=== PATIENT | male | born 1975 | race Caucasian/White ===

== ENCOUNTER 2021-03-01 06:58 | Outpatient (REF) | payer OTHER, SELFPAY ==
[2021-03-01 09:10] LABS: Estimated Average Glucose 298 mg/dL
[2021-03-01 09:12] LABS: Microalbum/Creatinine Ratio Ur 16.6 ug/mg cr
[2021-03-01 09:23] LABS: Vitamin B12 600 pg/mL (200-900)
[2021-03-01 09:26] LABS: Alanine Aminotransferase 35 U/L (0-40); Albumin Level 4.6 g/dL (3.5-5.0); Alkaline Phosphatase 164 U/L (39-117); Anion Gap 16 (12-20); Aspartate Amino Transferase 18 U/L (5-37); Bilirubin Total 0.9 mg/dL (0.0-1.0); Blood Urea Nitrogen 14 mg/dL (9-16); Calcium 9.7 mg/dL (8.4-10.2); Carbon Dioxide 23 mmol/L (22-29); Chloride 103 mmol/L (96-108); Cholesterol 161 mg/dL; Estimated Glomerular Filt Rate > 60; Glucose Random 357 mg/dL (60-115); HDL Cholesterol 35 mg/dL; LDL Cholesterol Calculated 48 mg/dl; Potassium 3.9 mmol/L (3.3-5.1); Sodium 138 mmol/L (135-145); Total Protein 7.2 g/dL (6.5-8.0); Triglycerides 393 mg/dL
== END 2021-03-01 06:59 | disposition home or self-care (01) ==
LOC: HO.LAB 06:58
PROVIDERS: Visit Provider Internal Medicine
DX: E11.65 Type 2 diabetes mellitus with hyperglycemia (principal); E11.69 Type 2 diabetes mellitus with other specified complication; M54.42 Lumbago with sciatica, left side
CPT/HCPCS: 36415; 80053; 80061; 82043; 82306; 82607; 83036

== ENCOUNTER 2021-06-01 15:20 | Outpatient (REF) | payer OTHER, SELFPAY ==
[2021-06-01 15:52] LABS: Estimated Average Glucose 312 mg/dL; Hemoglobin A1c % 12.5 %
== END 2021-06-01 15:21 | disposition home or self-care (01) ==
LOC: HO.LAB 15:20
PROVIDERS: PCP Internal Medicine; Visit Provider Internal Medicine
DX: E11.65 Type 2 diabetes mellitus with hyperglycemia (principal); I10 Essential (primary) hypertension
CPT/HCPCS: 36415; 83036

== ENCOUNTER → 2021-11-16 07:47 | Outpatient (BNVA) | payer OTHER, SELFPAY | PROVIDERS: PCP Internal Medicine; Visit Provider Nurse Practitioner Gerontology | DX: E11.65 Type 2 diabetes mellitus with hyperglycemia (principal); E55.9 Vitamin D deficiency, unspecified; E78.5 Hyperlipidemia, unspecified; I10 Essential (primary) hypertension; E66.09 Other obesity due to excess calories; Z68.30 Body mass index [BMI] 30.0-30.9, adult; Z79.4 Long term (current) use of insulin | CPT/HCPCS: 82947; 83036; 99212 ==

== ENCOUNTER 2022-01-30 14:24 | Outpatient (REF) | payer OTHER, SELFPAY ==
[2022-01-30 15:49] LABS: Anion Gap 13 (12-20); Blood Urea Nitrogen 13 mg/dL (9-16); Calcium 9.7 mg/dL (8.4-10.2); Carbon Dioxide 26 mmol/L (22-29); Chloride 107 mmol/L (96-108); Estimated Glomerular Filt Rate > 60; Glucose Random 128 mg/dL (60-115); Potassium 3.7 mmol/L (3.3-5.1); Sodium 142 mmol/L (135-145)
[2022-01-30 15:52] LABS: Creatinine Urine 80.36 mg/dL; Microalbum/Creatinine Ratio Ur 6.2 ug/mg cr
[2022-01-30 16:11] LABS: Vitamin D 25-OH Total 10.6 ng/mL (>30)
== END 2022-01-30 14:25 | disposition home or self-care (01) ==
LOC: HO.LAB 14:24
PROVIDERS: PCP Internal Medicine; Visit Provider Internal Medicine
DX: E11.65 Type 2 diabetes mellitus with hyperglycemia (principal); E55.9 Vitamin D deficiency, unspecified
CPT/HCPCS: 36415; 80048; 82043; 82306

== ENCOUNTER → 2022-02-22 09:28 | Outpatient (BNVA) | payer OTHER, SELFPAY | PROVIDERS: PCP Internal Medicine; Visit Provider Nurse Practitioner Gerontology | DX: E11.65 Type 2 diabetes mellitus with hyperglycemia (principal); E55.9 Vitamin D deficiency, unspecified; E78.5 Hyperlipidemia, unspecified; E66.09 Other obesity due to excess calories; I10 Essential (primary) hypertension; Z68.31 Body mass index [BMI] 31.0-31.9, adult; Z79.4 Long term (current) use of insulin; Z79.899 Other long term (current) drug therapy | CPT/HCPCS: 82947; 83036; 99212 ==

== ENCOUNTER → 2022-09-13 10:52 | Outpatient (BNVA) | payer OTHER, SELFPAY | PROVIDERS: PCP Internal Medicine; Visit Provider Nurse Practitioner Family | DX: Z12.11 Encounter for screening for malignant neoplasm of colon (principal) | CPT/HCPCS: 99202 ==

== ENCOUNTER → 2022-11-01 08:24 | Outpatient (BNVA) | payer OTHER, SELFPAY | PROVIDERS: PCP Internal Medicine; Visit Provider Internal Medicine Endocrinology, Diabetes & Metabolism | DX: E11.65 Type 2 diabetes mellitus with hyperglycemia (principal) | CPT/HCPCS: 82947; 83036; 99212 ==

== ENCOUNTER 2023-12-11 07:59 | Outpatient (REF) | payer OTHER, SELFPAY ==
[2023-12-11 09:48] LABS: Anion Gap 13 (12-20); Blood Urea Nitrogen 12 mg/dL (9-16); Calcium 9.5 mg/dL (8.4-10.2); Carbon Dioxide 25 mmol/L (22-29); Chloride 106 mmol/L (96-108); Cholesterol 212 mg/dL (<200); Estimated Glomerular Filt Rate > 60; Glucose Random 208 mg/dL (60-115); HDL Cholesterol 34 mg/dL (>40); LDL Cholesterol Calculated 105 mg/dL (<100); Potassium 3.6 mmol/L (3.3-5.1); Sodium 140 mmol/L (135-145); Triglycerides 368 mg/dL (<150)
[2023-12-11 10:02] LABS: TSH reflex Free T4 1.87 uIU/mL (0.32-4.0); Vitamin D 25-OH Total 10.4 ng/mL (>30)
== END 2023-12-11 08:00 | disposition home or self-care (01) ==
LOC: HO.LAB 07:59
PROVIDERS: PCP Internal Medicine; Visit Provider Internal Medicine
DX: E11.42 Type 2 diabetes mellitus with diabetic polyneuropathy (principal); E11.65 Type 2 diabetes mellitus with hyperglycemia; Z79.4 Long term (current) use of insulin
CPT/HCPCS: 36415; 80048; 80061; 82306; 84443

== ENCOUNTER 2024-09-22 09:34 | Outpatient (REF) | payer OTHER, SELFPAY ==
[2024-09-22 11:45] LABS: TSH reflex Free T4 1.87 uIU/mL (0.32-4.0)
[2024-09-30 16:04] LABS: Testosterone, Free 57.6 pg/mL (35.0-155.0); Testosterone, Total 345 ng/dL (250-1100)
== END 2024-09-22 09:35 | disposition home or self-care (01) ==
LOC: HO.LAB 09:34
PROVIDERS: PCP Internal Medicine; Visit Provider Internal Medicine
DX: Z31.69 Encounter for other general counseling and advice on procreation (principal)
CPT/HCPCS: 36415; 84402; 84403; 84443

== ENCOUNTER 2025-04-04 15:12 | Outpatient (REF) | payer BC, SELFPAY ==
[2025-04-04 16:03] LABS: Estimated Average Glucose 258 mg/dL; Hemoglobin A1c % 10.6 % (<6.0)
[2025-04-04 16:25] LABS: Alanine Aminotransferase 39 U/L (0-40); Albumin Level 4.7 g/dL (3.5-5.0); Alkaline Phosphatase 111 U/L (39-117); Anion Gap 13 (12-20); Aspartate Amino Transferase 25 U/L (5-37); Bilirubin Total 0.8 mg/dL (0.0-1.0); Blood Urea Nitrogen 13 mg/dL (9-16); Calcium 9.7 mg/dL (8.4-10.2); Carbon Dioxide 26 mmol/L (22-29); Chloride 107 mmol/L (96-108); Cholesterol 193 mg/dL (<200); Estimated Glomerular Filt Rate > 60; Glucose Random 156 mg/dL (60-115); HDL Cholesterol 35 mg/dL (>40); LDL Cholesterol Calculated 119 mg/dL (<100); Potassium 3.8 mmol/L (3.3-5.1); Sodium 142 mmol/L (135-145); Total Protein 7.4 g/dL (6.5-8.0); Triglycerides 195 mg/dL (<150)
[2025-04-04 16:34] LABS: Alanine Aminotransferase 42 U/L (0-40); Albumin Level 4.6 g/dL (3.5-5.0); Alkaline Phosphatase 111 U/L (39-117); Anion Gap 13 (12-20); Aspartate Amino Transferase 26 U/L (5-37); Bilirubin Total 0.7 mg/dL (0.0-1.0); Blood Urea Nitrogen 13 mg/dL (9-16); Calcium 9.5 mg/dL (8.4-10.2); Carbon Dioxide 27 mmol/L (22-29); Chloride 106 mmol/L (96-108); Cholesterol 186 mg/dL (<200); Estimated Glomerular Filt Rate > 60; Glucose Random 154 mg/dL (60-115); HDL Cholesterol 36 mg/dL (>40); LDL Cholesterol Calculated 112 mg/dL (<100); Potassium 3.7 mmol/L (3.3-5.1); Sodium 142 mmol/L (135-145); Total Protein 7.4 g/dL (6.5-8.0); Triglycerides 192 mg/dL (<150)
[2025-04-04 16:34] LABS: Creatinine Urine 144.12 mg/dL; Microalbum/Creatinine Ratio Ur 39.5 ug/mg cr (<30)
[2025-04-04 16:49] LABS: TSH reflex Free T4 1.78 uIU/mL (0.32-4.0); Vitamin D 25-OH Total 26.9 ng/mL (>30)
--- OUTSIDE RECORDS SUMMARY | 2025-04-04 17:01 | XMS_ITS | Clinical Summary ---
Author Organization [employer] Address [address] [place] [address] 7 [place] [address] Care Team Providers Care Laundry Assistant Name Role Phone Constance Luong MD Primary Care Provider + Allergies Active Allergy Reactions Criticality Noted Date Comments Semaglutide(0.25 Or 0.5mg-Dos) Other 07/12/2023 Severe nausea and gastroparesis Pollen Extract Unknown 10/23/2022 Medications glucose blood (ReliOn Prime Test) test strip 022 Active Lancet Devices (TRUEdraw Lancing Device) miscIndications: Type 2 diabetes mellitus with hyperglycemia ([facility]) USE DIRECTED 1 each 3 023 Active insulin aspart FlexPen (NovoLOG) 100 UNIT/ML penIndications:T ype 2 diabetes mellitus with hyperglycemia, with long-term current use of insulin ([facility]) Inject 4-14 Units under the skin before breakfast, before lunch, and before evening meal. According to sliding scale: 150-200: 4U/ 201-250=6u/ 251-300= 8u/ 301-350= 10U / 351-400= 14u and call PCP 12.6 mL 11 023 Active atorvastatin (Lipitor) 80 MG tabletIndication s:Hypertriglycer idemia Take 1 tablet (80 mg) by mouth at bedtime. 90 tablet 3 024 Active lisinopril 10 MG tabletIndication s:Primary hypertension Take 1 tablet (10 mg) by mouth in the morning. 90 tablet 3 024 Active insulin glargine (Lantus SoloStar) 100 UNIT/ML penIndications:T ype 2 diabetes mellitus without complication, with long-term current use of insulin ([facility]) Inject 60 Units under the skin at bedtime. 18 mL 11 Active insulin pen needle (Pentips) 32G x 6 mm misc Use TWICE A DAY 100 each 11 024 2024 Active sildenafil (Viagra) 100 MG tabletIndication s:Vasculogenic erectile dysfunction, unspecified vasculogenic erectile dysfunction type Take 1 tablet by mouth daily if needed approximately 1 hour before sexual activity. 10 tablet Active ergocalciferol (Vitamin D2) 1.25 MG (10941 UT) capsule TAKE 1 CAPSULE BY MOUTH ONCE A WEEK 12 capsule 3 Active gabapentin (Neurontin) 100 MG capsuleIndicatio ns:Polyneuropath y due to type 2 diabetes mellitus ([facility]) Take 1 capsule (100 mg) by mouth every 12 (twelve) hours. 60 capsule Active Additional Information Patient not taking.Reported on 02/04/2025 amoxicillin (Amoxil) 500 MG tablet TAKE 2 TABLETS BY MOUTH ONCE THEN 1 TABLET EVERY 8 HOURS UNTIL MEDICATION FINISHED Active Jardiance 25 MG TAKE 1 TABLET BY MOUTH EVERY MORNING 30 tablet Active empagliflozin (Jardiance) 25 MG Take 1 tablet (25 mg) by mouth in the morning. 30 tablet 2024 Discontinued Active Problems Problem Noted Date Diagnosed Date Lower urinary tract symptoms (LUTS) 12/08/2024 Assessment & Plan (12/08/2024 12:22 PM EST): Most likely BPH. Advised to reschedule appt with Urology which will also help with ED. Infertility counseling 09/21/2024 Assessment & Plan (09/21/2024 10:36 AM EST): Advised pt about controlled DM, treat ED. Refer to Urology for sperm count. Lichen planus 03/19/2024 Assessment & Plan (03/19/2024 9:37 AM EDT): On both heels, advised to use OTC hydrocortisone cream along w/ feet moisturizer Will fu at next visit and prescribe a stronger steroid if lesions have not changed Declined to be seen by dermatology Type 2 diabetes mellitus wit h hyperglycemia, with long-term current use of insulin 03/19/2024 Assessment & Plan (12/08/2024 12:17 PM EST): Uncontrolled. A1c improved but is at not at goal yet. Patient alternates with different types of insulin depending on what is available to him due to insurance coverage and affordability since he cannot afford Tresiba. Continue Jardiance and FU with endocrinology at [facility] on 12/22/2024. Counseled re more frequent low calorie/carb meals. Encouraged physical activity as tolerated. Foot exam is normal, no DM neuropathy. Advised to schedule ophthalmology appointment. Declined Influenza and Covid IZ a this time. FU in 3 months. Assessment & Plan (04/30/2024 10:39 AM EDT): More compliant with rx. Continue Lantus 60U + Humalog tid ac meals + Jardiance Counseled re more frequent low calorie/carb meals. Check fgstk 3x daily Encouraged physical activity as tolerated. Advised to fu with Optometry, Dr Chun Needs foot exam at next appt FU in 3 months. Assessment & Plan (03/19/2024 9:36 AM EDT): Uncontrolled. A1c is worse than before No medication changes as pt is not compliant w/ current doses. I had a lengthy discussion w/ pt about setting up alarms, medboxes (he has declined) Counseled re more frequent low calorie/carb meals. Check fgstk daily Encouraged physical activity as tolerated. Pt given information of [facility] to schedule an appointment for ophthalmology Fu Pt will call to reschedule appointment w/ podiatry to fu on ingrown toe nail FU in 6 wks TV Dyspepsia 01/30/2024 Assessment & Plan (01/30/2024 3:51 PM EDT): Likely related to DM gastropathy, fu with GI. Hypertriglyceridemia 12/12/2023 Assessment & Plan (12/12/2023 11:01 AM EST): Increase atorvastatin to 80 mg and attempt a tighter control of DM Will hold off on fibrates Diabetic retinopathy of righ t eye associated with type 2 diabetes mellitus 12/12/2023 Primary hypertension 09/12/2023 Assessment & Plan (12/08/2024 12:20 PM EST): Borderline controlled. Unclear if patient is compliant with medication as refill history shows otherwise. Continue lisinopril 10 mg same dose Counseled re low salt diet/increase moderate physical activity. Check home BP BIW and prn CP/MASTERSON/SALINAS Non smoking patient. Assessment & Plan (03/19/2024 9:34 AM EDT): Controlled. Unclear about compliance w/meds Continue lisinopril 10mg Counseled re low salt diet/increase moderate physical activity. Check home BP BIW and prn CP/MASTERSON/SALINAS Non smoking patient. Assessment & Plan (01/30/2024 3:47 PM EDT): Better controlled, BP is not at goal yet I told him to work on life style modifications, to have regular low slat det, increase regular exercise and take meds at a constant time. Check home BP BIW and prn CP/MASTERSON/SALINAS Non smoking patient. Fu in 4w Assessment & Plan (12/12/2023 10:51 AM EST): Uncontrolled. Increase lisinopril to 10mg and fu w me in 4 wks or firefighter type one Counseled re low salt diet/increase moderate physical activity. Check home BP BIW and prn CP/MASTERSON/SALINAS Assessment & Plan (09/12/2023 2:08 PM EST): Repeated is 130/82 Continue lisinopril 5mg, check BP at home FU with me in 3 months Encounter for colorectal cancer screening 2022 Assessment & Plan (09/12/2023 2:09 PM EST): New referral to was given to Pt as apparently the previous GI cancelled appointments several times Pt to make an appointment w/ Adjustment disorder with depressed mood 10/23/20 Assessment & Plan (04/30/2024 10:40 AM EDT): He was on better spirits today. Denies SI/HI We'll continue to monitor. He's aware of MH resources at health center and has crisis number. Assessment & Plan (03/19/2024 9:38 AM EDT): Pt is probably has major depression but he's declined repeativly to be referred to psychotherapy or evaluation He feels safe at home at this time and is able to reach out for safety, crisis number provided We discussed about coming into [facility] or messaging us on MyChart or using crisis #, continue POC Fu in 6 wk Gastroenteritis 10/23/2022 Polyneuropathy due to type 2 diabetes mellitus 1 12/24/2021 Assessment & Plan (03/07/2023 12:06 PM EDT): Seems to be slightly improving. 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 A1c is at goal. Counseled re more frequent low calorie/carb meals. Check fgstk 2-3x daily, I will try to get CGM approved by insurance so we can check fgstk. Refer to CDTM program. Encouraged physical activity as tolerated. FU in 4-6w. II explained that nausea and GI sxs may be related to gastropathy, he has a referral to GI in place. Referral for routine ophthalmology eval sent as well, patient never rs appt with [facility]. Assessment & Plan (12/12/2023 3:19 PM EST): Uncontrolled, pt noncompliant w meals and most likely w/ Tresiva Increase Tresiva up to 65 units and fu w firefighter type one or w me in 4-5w He needs to reschedule appointment w/ We discussed about setting up for insulin pump or CGM device but due to copayments pt is unable to afford this with firefighter type one or here at [facility] pharmacy. Counseled re more frequent low calorie/carb meals. Check fgstk 4x daily, cover with humalog scale. Encouraged physical activity as tolerated. Pt had retinopathy, told to schedule an appointment w/ retina specialist Assessment & Plan (09/12/2023 2:08 PM EST): Most likely still uncontrolled. Reminding pt to increase Lantus up to 60 units and FU with firefighter type one () Reminded about compliance with other medications, pt has significant financial distress due to cost of medications, so he will reach out to his job for assistance with insurance Assessment & Plan (07/12/2023 6:49 PM EDT): Uncontrolled, A1c is worse. Unclear if affected by recent episode of covid Increase tresiba to 60u/d, continue jardiance and humalog, encouraged to use it tid and be more complaint with at least 3 main melas daily. We'll try Invokana or Januvia at next appt, he's reluctant to try new meds at this time due to previous severe GI intolerance to other meds. He's to endocrinology appt, he had covid at the time of appt last month. I will fu with Influenza IZ at next appt, given recent episode of covid FU with me in 4-6w Assessment & Plan (03/07/2023 12:07 PM EDT): Uncontrolled but A1C is significantly improved. I will switch to tresiba to decrease financial burden and increase to 60 units per day and Novalog TID Ac meals according to sliding scale. Continue jardiance and dc glucotrol. appointment with firefighter type one in may. FU with me in 4 months with labs. stressed importance of sticking to one medication regimen and I gave him information about pre-tax contribution for medical expenses Encounters Date Type Department Care Team Description 04/04/2025 Orders Only [facility] [address] [place] [address] Constance Luong MD 03/07/2025 Refill [facility] [address] [place] [address] Constance Luong MD 02/04/2025 1:00 PM EDT Office Visit [facility] [address] [place] [address] Regalado-Swan, Carol, DDS Gum inflammation (Primary Dx); Bleeding gums; Tooth pain 02/04/2025 Telephone [facility] [address] [place] [address] Regalado-Swan, Carol, DDS APPT 01/14/2025 Refill [facility] [address] [place] [address] Constance Luong MD Polyneuropathy due to type 2 diabetes mellitus ([facility]) from Last 3 Months Immunizations Immunization Administration Dates Next Due Moderna Covid-19 Vaccine 12+ 11/02/2021,02/01/20 21,01/03/2021 Social History Tobacco Use Types Packs/Day Years Used Date Smoking Tobacco: Never Smokeless Tobacco: Never Tobacco Cessation:Counseling Given: Not Answered Alcohol Use Standard Drinks/Week Comments Never 0 (1 standard drink = 0.6 oz pur e alcohol) Depression Answer Date Recorded Patient Health Questionnaire-9 Score 8 03/19/2024 Patient Health Questionnaire-9 Score 8 03/19/2024 Last PHQ-9: Questionnaire Data Not on file 0 03/19/2024 Housing Stability Answer Date Recorded What is your housing situation today? I have lopez angelo 09/01/[address] you li ve. Do you have problems with any of the following? None of the above 09/01/2023 Food Insecurity Answer Date Recorded Within the past 12 months, y ou worried that your food would run out before you got money to buy more: Never True 09/01/2023 Within the past 12 months,th e food you bought just didn't last and you didn't have enough money to get more: Never True 03/2023 Transportation Answer Date Recorded In the past 12 months, has l ack of transportation kept you from medical appts, meetings, work or from getting things needed for daily living? No 09/01/2023 Utilities Answer Date Recorded In the past 12 months, has t he electric, gas, oil or water company threatened to shut off services in your home? No 09/01/2023 Depression Answer Date Recorded Patient Health Questionnaire-2 Score 3 03/19/2024 Sex and Gender Information Value Date Recorded Sex Assigned at Male 08/26/2022 10:31 AM EDT Legal Sex Male 10:31 AM EDT Gender Identity Male 08/26/2022 10:31 AM EDT Sexual Orientation Straight 08/26/2022 10 :31 AM EDT Last Filed Vital Signs Vital Sign Reading Time Taken Comments Blood Pressure 140/85 12/08/2024 10:43 AM EST Pulse 113 12/08/2024 10:01 AM EST Temperature 37.2 ??C (99 ??F) 12/08/2024 10:01 AM EST Respiratory Rate 20 12/12/2023 10:10 AM EST Oxygen Saturation 97% 12/08/2024 10:01 AM EST Inhaled Oxygen Concentration - - Weight 95.8 kg (211 lb 4 oz) 12/08/2024 10:01 AM EST Height 175.3 cm (5' 9 ) 12/08/2024 10:01 AM EST Body Mass Index 31.2 12/08/2024 10:01 AM EST Plan of Treatment Health Maintenance Due Date Last Done Comments CT Colonography 1974 Colonoscopy 1974 Colorectal Cancer Screening 1974 Dental Oral Exam 1974 Dental Prophylaxis 1974 Dental X-Ray: Full Mouth 1974 FIT DNA/Cologuard 1974 FIT 1974 FOBT 1974 HIV Screening 1974 Sigmoidoscopy 1974 Disability Screening 1974 Eye Exam 1984 Alcohol/Substance Use Screening 1986 Family Planning (PISQ) 1989 Hepatitis C Screening 1992 DTaP/Tdap/Td Vaccines (1 - Tdap) 1993 Hepatitis B Vaccines (1 of 3 - 19+ 3-dose series) 1993 Pneumococcal Vaccine: 50+ Years (1 of 2 - PCV) 1993 SDOH Screening 03/07/2024 03/07/2023 Zoster Vaccines (1 of 2) 2024 COVID-19 Vaccine ( season) 2024 11/02/2021, 01/31/2021, 01/03/2021 Depression Screening 03/19/2025 03/19/2024, 03/19/20 Influenza Vaccine (Season Ended) 2025 Diabetes: Hemoglobin A1C 07/05/2025 025, 12/08/2024, 03/19/2024, Additional history exists Diabetes: Foot Exam 12/08/2025 12/08/2024, 12/08/2024, 12/08/2024, Additional history exists Tobacco Screening 02/04/2026 02/04/2025 Dental X-Ray: Bitewings 02/05/2026 02/04/2025 Diabetes: Urine Protein Screening 04/04/2026 04/04/2025, 01/30/2022, 03/01/2021, Additional history exists Lipid Panel 04/04/2026 04/04/2025, 06/2025, 12/11/2023 RSV Patients and Patients Aged 60 years or older (1 - 1-dose 75+ series) 2049 HIB Vaccines Aged Out No longer eligi ble based on patient's age to complete this topic HPV Vaccines Aged Out No longer eligi ble based on patient's age to complete this topic Hepatitis A Vaccines Aged Out No long er eligible based on patient's age to complete this topic IPV Vaccines Aged Out No longer eligi ble based on patient's age to complete this topic Meningococcal B Vaccine Aged Out No l onger eligible based on patient's age to complete this topic Meningococcal Vaccine Aged Out No rush devaughn eligible based on patient's age to complete this topic RSV under 20 months Aged Out No longe r eligible based on patient's age to complete this topic Rotavirus Vaccines Aged Out No longer eligible based on patient's age to complete this topic Procedures Procedure Name Priority Date/Time Associated Diagnosis Comments COMPREHENSIVE METABOLIC PANEL Routine 04/04/2025 3:37 PM EDT LIPID PANEL, STANDARD Routine 04/04/2025 3:37 PM EDT HEMOGLOBIN A1C Routine 04/04/2025 3:37 PM EDT COMPREHENSIVE METABOLIC PANEL Routine 04/04/2025 3:37 PM EDT Primary hypertension Type 2 diabetes mellitus with hyperglycemia, with long-term current use of insulin ([facility]) LIPID PANEL WITH REFLEX TO DIRECT LDL Routine 04/04/2025 3:37 PM EDT Primary hypertension Type 2 diabetes mellitus with hyperglycemia, with long-term current use of insulin ([facility]) VITAMIN D,25-OH,TOTAL,IA Routine 04/04/2025 3:37 PM EDT Type 2 diabetes mellitus with hyperglycemia, with long-term current use of insulin ([facility]) TSH W/REFLEX TO FT4 Routine 04/04/2025 3 :37 PM EDT Primary hypertension Type 2 diabetes mellitus with hyperglycemia, with long-term current use of insulin ([facility]) ALBUMIN, RANDOM URINE W/CREATININE Routine 04/04/2025 3:29 PM EDT Type 2 diabetes mellitus with hyperglycemia, with long-term current use of insulin ([facility]) CASE PRESENTATION, DETAILED AND EXTENSIVE TREATMENT PLANNING Routine 02/04/2025 1:00 PM EDT BITEWING - SINGLE RADIOGRAPHIC IMAGE Routine 02/04/2025 1:00 PM EDT INTRAORAL - PERIAPICAL FIRST RADIOGRAPHIC IMAGE Routine 02/04/2025 1:00 PM EDT PALLIATIVE (EMERGENCY) TREATMENT OF DENTAL PAIN - MINOR PROCEDURE Routine 02/04/2025 1:00 PM EDT 4 ROOT CANAL Routine 02/04/2025 12:00 AM EDT 2 MO COMPOSITE FILLING Routine 5 12:00 AM EDT 5 DO COMPOSITE FILLING Routine 5 12:00 AM EDT 4 MOD COMPOSITE FILLING Routine 02/04/2025 12:00 AM EDT 3 MO COMPOSITE FILLING Routine 5 12:00 AM EDT from Last 3 Months Results * (ABNORMAL) Hemoglobin A1c (04/04/2025 3:37 PM EDT) Hemoglobin A1c 10.6(H) <6.0 % [facility] Comment:Hemoglobin A1C Refer ence Range Adults: 4.8 - 6.0 % Non diabetic: < 6.0 % Goal: < 7.0 %Additional Action Suggested: > 8.0 %Note: Hemoglobin A1c results are invalid for patients with abnormal amounts of HbF. Blood transfusions may impact the HbA1c concentration in the patient sample. Estimated Average Glucose 258 mg/dL [facility] Comment:eAG = Estimated ave rage glucose which is %A1C expressed asaverage glucose, using the formula of the [id number]-[id number] Glucose study (ADAG), Diabetes Care, Vol.31,#8,Aug. 2007 04/04/2025 3:37 PM EDT 04/04/2025 3:38 PM EDT us Constance Luong MD LAB BLOOD ORDERABLES Fin al Result [facility] [place] [address] [phone] * (ABNORMAL) Lipid Panel, Standard (04/04/2025 3:37 PM EDT) Triglycerides 195(H) <150 mg/dL [facility] Comment:Desirable Triglyceri de: less than 150 mg/dLBorderline High Triglyceride 150-199 mg/dLHigh Triglyceride: 200-499 mg/dLVery High Triglyceride: greater than or equal to 5OO mg/dL Cholesterol 193 <200 mg/dL [facility] Comment:Desirable Cholestero l: less than 200 mg/dLBorderline High Cholesterol: 200-239 mg/dLHigh Cholesterol: greater than 239 mg/dL LDL Cholesterol Calculated 119(H) <100 mg/dL [facility] Comment:Desirable LDL: less than 100 mg/dLNear Optimal/Above Optimal LDL: 110- 129 mg/dLBorderline High LDL: 130-159 mg/dLHigh LDL: 160-189 mg/dLVery High LDL: greater than or equal to 190 mg/dL HDL Cholesterol 35(L) >40 mg/dL [facility] Comment:Desirable HDL: great er than 40 mg/dL Note: This HDL assay may give artificially low results in patients with liver disease. 04/04/2025 3:37 PM EDT 04/04/2025 3:38 PM EDT us Constance Luong MD LAB BLOOD ORDERABLES Fin al Result [facility] [address] [place] [phone] * (ABNORMAL) Comprehensive Metabolic Panel (04/04/2025 3:37 PM EDT) Sodium 142 135 - 145 mmol/L [facility] Potassium 3.8 3.3 - 5.1 mmol/L [facility] Chloride 107 96 - 108 mmol/L [facility] Carbon Dioxide 26 22 - 29 mmol/L [facility] Anion Gap 13 12 - 20 [facility] Urea Nitrogen (BUN) 13 9 - 16 mg/dL [facility] Creatinine, Serum 1.00 0.5 - 1.4 mg/dL [facility] Estimated Glomerular Filt Rate >60 [facility] Comment:Chronic Kidney Disea se: Estimated GFR < 60 mL/min/1.46x3Nlcttl Kidney Disease: Estimated GFR < 15 mL/min/1.73m2 Glucose 156(H) 60 - 115 mg/dL [facility] Calcium 9.7 8.4 - 10.2 mg/dL [facility] Bilirubin, Total 0.8 0.0 - 1.0 mg/dL [facility] Aspartate Amino Transferase 25 5 - 37 U/L [facility] Alanine Aminotransferase 39 0 - 40 U/L [facility] Total Protein 7.4 6.5 - 8.0 g/dL [facility] Albumin Level 4.7 3.5 - 5.0 g/dL [facility] Alkaline Phosphatase 111 39 - 117 U/L [facility] Blood Venous blood specimen / Unknown 04/04/2025 3:37 PM EDT 04/04/2025 3:38 PM EDT us Constance Luong MD LAB BLOOD ORDERABLES Fin danny Result Performing Organization Address [facility] de Phone Number [facility] [address] [place] [phone] * (ABNORMAL) Albumin, Random Urine W/Creatinine (04/04/2025 3:29 PM EDT) Creatinine, Urine 144.12 mg/dL [facility] Microalbumin Urine 57.0 mg/L [facility] Microalbum Creatinine Ratio Ur 39.5(H) <30 ug/mg cr [facility] Comment:Albumin/Creatinine R atio Reference Ranges: Normal: < 30 ug/mg creatinine Microalbuminuria: 30 - 300 ug/mg creatinineClinical Albuminuria: > 300 ug/mg creatinine Urine (Urine, Random) 04/04/2025 3:29 PM EDT 04/04/2025 3:54 PM EDT us Constance Luong MD LAB URINE ORDERABLES Fin al Result Performing Organization Address [facility] de Phone Number [facility] [address] [place] [phone] from Last 3 Months Insurance BCBS OUT OF STATE DENTAL - [facility] [place] [id number] Care Teams Laundry Assistant Relationship Specialty Start Date End Date Constance Luong MD [address] [place] [phone] PCP - General Family Medicine 10/27/18
[2025-04-04 17:32] LABS: Reflex LDLD? No
[2025-04-05 08:09] LABS: HBS Num1 0.02 mIU/mL (0-7.99); HBc Num1 0.05 S/CO (0.00-0.79); HBsAGNum1 0.41 S/CO (0.00-0.99); Hepatitis A Antibody IgM 0.17 Index (0-0.79); Hepatitis B Core Antibody Nonreactive (Nonreactive); Hepatitis B Surface Antigen Negative (Negative); ~HepC Num1 0.13 S/CO (0.00-0.79); ~Hepatitis A Antibody IgM Nonreactive (Nonreactive); ~Hepatitis B Surface Antibody NONREACTIVE (Nonreactive); ~Hepatitis C Antibody Nonreactive (Nonreactive)
[2025-04-06 18:24] LABS: Glutamic acid decarboxylase Ab <5 IU/mL (<5)
[2025-04-07 05:28] LABS: Zinc 78 mcg/dL (60-130)
[2025-04-08 01:52] LABS: C Peptide 1.51 ng/mL (0.80-3.85)
[2025-04-09 01:13] LABS: Islet Cell Antibody Screen NEGATIVE (NEGATIVE)
== END 2025-04-04 15:13 | disposition home or self-care (01) ==
LOC: HO.LAB 15:12
PROVIDERS: Absent Provider Emergency Medicine; PCP Internal Medicine; Visit Provider Internal Medicine
DX: I10 Essential (primary) hypertension (principal); E11.65 Type 2 diabetes mellitus with hyperglycemia; Z79.4 Long term (current) use of insulin; E11.42 Type 2 diabetes mellitus with diabetic polyneuropathy
CPT/HCPCS: 36415; 80053; 80061; 82043; 82306; 82570; 83036; 84443; 84630; 84681; 86341; 86704; 86706; 86709; 86803; 87340